=== PATIENT | male | born 1960 | race Caucasian/White ===

== ENCOUNTER 2024-06-12 16:02 | Inpatient (IN) | payer MEDICARE ==
[2024-06-12 23:29] VITALS: BMI 29.0
[2024-06-13] MEDS: cefTRIAXone\\ROCEPHIN 1 GM in Sodium Chloride 0.9% 100 ML IVPB SCH (02:09)
[2024-06-13 06:41] LABS: ALT (SGPT) 26 U/L (8-55); AST (SGOT) 16 U/L (5-34); Albumin 2.6 g/dL (3.4-4.8); Alkaline Phosphatase 85 U/L (40-110); Anion Gap 13 mmol/L (10-20); BUN (Urea Nitrogen) 26 mg/dL (8.4-25.7); Bilirubin, Total Less than 0.2 mg/dL (0.2-1.2); Calc. Creatinine Clearance 55 mL/min (70-130); Calcium 8.2 mg/dL (7.8-10.44); Carbon Dioxide 24 mmol/L (23-31); Chloride 108 mmol/L (98-107); Estimated GFR 41; Globulin 3.8 g/dL (2.4-3.5); Glucose 149 mg/dL (80-115); Potassium 3.8 mmol/L (3.5-5.1); Protein, Total 6.4 g/dL (5.8-8.1); Sodium 141 mmol/L (136-145)
[2024-06-13] MEDS ORDERED: Loperamide HCl 2 MG CAP PO PRN (11:01)
[2024-06-13] MEDS ORDERED: Ondansetron ODT 4 MG TAB SL PRN (11:01)
[2024-06-13] MEDS ORDERED: Bisacodyl 5 MG TAB PO PRN (11:01)
[2024-06-13] MEDS ORDERED: Glucagon 1 MG/ML KIT IM PRN (11:05)
[2024-06-13] MEDS ORDERED: Dextrose 5% in Water 1,000 ML IV PRN (11:05)
[2024-06-13] MEDS ORDERED: Dextrose 50% Abboject 50 ML SYRINGE SLOW IVP PRN (11:05)
[2024-06-13] MEDS: Propranolol HCl 20 MG TAB PO SCH ×2 (12:42→21:24)
[2024-06-13] MEDS: Lisinopril 20 MG TAB PO SCH ×2 (12:43→21:25)
[2024-06-13] MEDS: Hydrochlorothiazide 25 MG TAB PO SCH (12:43)
[2024-06-13 14:35] VITALS: BMI 29.0
[2024-06-13] MEDS: Saccharomyces boulardii 250 MG CAP PO SCH (21:25)
[2024-06-13] MEDS: Gabapentin 300 MG CAP PO SCH (21:25)
[2024-06-13] MEDS: Atorvastatin Calcium 40 MG TAB PO SCH (21:25)
[2024-06-13] MEDS: Baclofen 10 MG TAB PO SCH (21:25)
[2024-06-13] MEDS: levETIRAcetam 500 MG TAB PO SCH (21:26)
[2024-06-14] MEDS: cefTRIAXone\\ROCEPHIN 1 GM in Sodium Chloride 0.9% 100 ML IVPB SCH (01:37)
[2024-06-14] MEDS: Hydrochlorothiazide 25 MG TAB PO SCH (08:47)
[2024-06-14] MEDS: glipiZIDE 5 MG TAB PO SCH (08:49)
[2024-06-14] MEDS: Clopidogrel Bisulfate 75 MG TAB PO SCH (08:51)
[2024-06-14] MEDS: Pantoprazole DR 40 MG TAB PO SCH (08:51)
[2024-06-14] MEDS: Amlodipine 5 MG TAB PO SCH (08:51)
[2024-06-14] MEDS: Oxybutynin 5 MG TAB PO SCH (08:52)
[2024-06-14] MEDS: Aspirin 81 mg Enteric Coated Tablet PO SCH (08:52)
[2024-06-15] MEDS: Acetaminophen 325 MG TAB PO PRN (14:09)
[2024-06-16] MEDS: Oxybutynin 5 MG TAB PO SCH (21:19)
[2024-06-18] MEDS: cefTRIAXone (ROCEPHIN) 1 GM VIAL IVPB SCH (08:39)
[2024-06-18] MEDS ORDERED: Dextrose 50% Abboject 50 ML SYRINGE SLOW IVP PRN (18:45)
[2024-06-18] MEDS ORDERED: Glucagon 1 MG/ML KIT IM PRN (18:45)
[2024-06-18] MEDS ORDERED: HumaLOG 300 UNITS/3 ML VIAL SC PRN ×2 (18:45)
[2024-06-18] MEDS ORDERED: Dextrose 5% in Water 1,000 ML IV PRN (18:45)
[2024-06-19] MEDS: Insulin Lispro 100 UNIT/ML 10 ML VIAL SC PRN ×2 (12:58→21:08)
[2024-06-20] MEDS: Senokot S 8.6-50 MG TAB PO PRN (08:45)
[2024-06-21] MEDS ORDERED: Glucagon 1 MG/ML KIT IM PRN (14:43)
[2024-06-21] MEDS ORDERED: HumaLOG 300 UNITS/3 ML VIAL SC PRN ×2 (14:43)
[2024-06-21] MEDS ORDERED: Dextrose 50% Abboject 50 ML SYRINGE SLOW IVP PRN (14:43)
[2024-06-21] MEDS ORDERED: Dextrose 5% in Water 1,000 ML IV PRN (14:43)
[2024-06-21] MEDS: Insulin Lispro 100 UNIT/ML 10 ML VIAL SC PRN ×2 (17:38→21:51)
[2024-06-21 18:04] LABS: #Basophils 0.1 thou/uL (0.0-0.2); #Eosinophils 0.2 thou/uL (0.0-0.7); #Lymphocytes 1.5 thou/uL (1.20-3.40); #Monocytes 0.5 thou/uL (0.11-0.59); #Neutrophils 5.6 thou/uL (1.40-6.50); %Basophils 1.1 % (0.0-1.0); %Eosinophils 2.7 % (0.0-10.0); %Lymphocytes 19.1 % (21.0-51.0); %Monocytes 6.5 % (0.0-10.0); %Neutrophils 70.7 % (42.0-75.0); Hematocrit 32.9 % (42.0-52.0); Hemoglobin 10.6 g/dL (14.0-18.0); Mean Corpuscular HGB CONC 32.2 g/dL (32.0-36.0); Mean Corpuscular Hemoglobin 26.5 pg (27.0-31.0); Mean Corpuscular Volume 82.1 fl (78.0-98.0); Mean Platelet Volume 6.3 fL (7.4-10.4); Platelet Count 228 10x3/uL (130-400); RBC Distribution Width 12.4 % (11.5-14.5); Red Blood Cell (RBC) Count 4.01 mill/uL (4.70-6.10); White Blood Cell (WBC) Count 7.9 10x3/uL (4.8-10.8)
[2024-06-21 18:24] LABS: ALT (SGPT) 30 U/L (8-55); AST (SGOT) 11 U/L (5-34); Albumin 3.1 g/dL (3.4-4.8); Alkaline Phosphatase 95 U/L (40-110); Anion Gap 14 mmol/L (10-20); BUN (Urea Nitrogen) 38 mg/dL (8.4-25.7); Bilirubin, Total 0.2 mg/dL (0.2-1.2); Calc. Creatinine Clearance 39 mL/min (70-130); Calcium 8.9 mg/dL (7.8-10.44); Carbon Dioxide 25 mmol/L (23-31); Chloride 104 mmol/L (98-107); Estimated GFR 28; Globulin 3.6 g/dL (2.4-3.5); Glucose 353 mg/dL (80-115); Potassium 4.8 mmol/L (3.5-5.1); Protein, Total 6.7 g/dL (5.8-8.1); Sodium 138 mmol/L (136-145)
[2024-06-21 19:08] LABS: Bilirubin Negative (Negative); Blood, Urine Moderate (Negative); Clarity Clear (Clear); Glucose, Urine (Dipstick) 500 mg/dL (Negative); Ketone, Urine Negative (Negative); Leukocyte Small (Negative); Nitrite Negative (Negative); Protein, Urine (Dipstick) 100 mg/dL (Neg-Trace); Specific Gravity, Urine 1.015 (1.005-1.030); Urobilinogen 0.2 mg/dL (Less than 2); pH, Urine 6.5 (5.0-9.0)
[2024-06-21 20:21] LABS: Bacteria/HPF Rare-Few HPF (None Seen); CAUTI Indications for Culture Alt mental st,lethar; Squamous Epithelial 0-3 HPF (0-3)
[2024-06-21 21:08] LABS: Urine Culture Reflex Yes Yes
[2024-06-22] MEDS: Lantus 1000 UNITS/10 ML VIAL SC SCH ×2 (10:35→21:45)
[2024-06-23] MEDS: Lantus 1000 UNITS/10 ML VIAL SC SCH (08:38)
[2024-06-26] MEDS: Lantus 1000 UNITS/10 ML VIAL SC SCH (21:00)
[2024-06-27] MEDS: Lantus 1000 UNITS/10 ML VIAL SC SCH (08:35)
[2024-07-01] MEDS ORDERED: Melatonin 3 MG TAB PO PRN (06:12)
[2024-07-04 17:39] VITALS: TEMP 98.4
[2024-07-05 05:59] VITALS: BP 143/78
== END 2024-07-05 12:05 | disposition home or self-care (01) | DRG 948 ==
LOC: BURMED 22:05
PROVIDERS: ADMIT Family Medicine; ATTEND Family Medicine
DX: R53.81 Other malaise (principal); N12 Tubulo-interstitial nephritis, not specified as acute or chronic; N17.9 Acute kidney failure, unspecified; I12.9 Hypertensive chronic kidney disease with stage 1 through stage 4 chronic kidney disease, or unspecified chronic kidney disease; N18.9 Chronic kidney disease, unspecified; E11.22 Type 2 diabetes mellitus with diabetic chronic kidney disease; G40.909 Epilepsy, unspecified, not intractable, without status epilepticus; E78.5 Hyperlipidemia, unspecified; Z79.899 Other long term (current) drug therapy; Z79.82 Long term (current) use of aspirin; E11.65 Type 2 diabetes mellitus with hyperglycemia; N31.9 Neuromuscular dysfunction of bladder, unspecified; Z79.4 Long term (current) use of insulin; Z86.73 Personal history of transient ischemic attack (TIA), and cerebral infarction without residual deficits
CPT/HCPCS: 80053; 81001; 85025; 87086; 97602; J0696; J1815

== ENCOUNTER 2025-04-07 15:17 | Inpatient (IN) | payer MEDICARE ==
[2025-04-07 16:16] VITALS: BMI 29.0
[2025-04-07] MEDS ORDERED: Calcium Carbonate 500 MG ChewTAB PO PRN (19:35)
[2025-04-07] MEDS ORDERED: Bisacodyl 10 MG SUPP PR PRN (19:39)
[2025-04-07] MEDS ORDERED: Dextrose 50% Abboject 50 ML SYRINGE SLOW IVP PRN (19:50)
[2025-04-07] MEDS ORDERED: Glucagon 1 MG/ML KIT IM PRN (19:50)
[2025-04-07] MEDS: levETIRAcetam 500 MG TAB PO SCH (21:06)
[2025-04-07] MEDS: Gabapentin 300 MG CAP PO SCH (21:07)
[2025-04-07] MEDS: Ergocalciferol 1.25 MG(50,000 UNITS) CAP PO SCH (21:08)
[2025-04-07] MEDS: Melatonin 3 MG TAB PO SCH (21:08)
[2025-04-07] MEDS: Baclofen 10 MG TAB PO SCH (21:08)
[2025-04-08 06:03] LABS: #Basophils 0.1 thou/uL (0.0-0.2); #Eosinophils 0.3 thou/uL (0.0-0.7); #Lymphocytes 1.3 thou/uL (1.20-3.40); #Monocytes 0.4 thou/uL (0.11-0.59); #Neutrophils 5.2 thou/uL (1.40-6.50); %Basophils 1.5 % (0.0-1.0); %Eosinophils 3.7 % (0.0-10.0); %Lymphocytes 18.2 % (21.0-51.0); %Monocytes 5.3 % (0.0-10.0); %Neutrophils 71.4 % (42.0-75.0); Hematocrit 26.6 % (42.0-52.0); Hemoglobin 9.1 g/dL (14.0-18.0); Mean Corpuscular Hemoglobin 26.5 pg (27.0-31.0); Mean Corpuscular Volume 77.4 fl (78.0-98.0); Platelet Count 163 10x3/uL (130-400); Red Blood Cell (RBC) Count 3.44 mill/uL (4.70-6.10); White Blood Cell (WBC) Count 7.3 10x3/uL (4.8-10.8)
[2025-04-08 06:16] LABS: ALT (SGPT) 24 U/L (Less than 45); AST (SGOT) 15 U/L (11-34); Albumin 2.7 g/dL (3.1-4.5); Alkaline Phosphatase 68 U/L (40-110); Anion Gap 16 mmol/L (10-20); BUN (Urea Nitrogen) 60 mg/dL (8.4-25.7); Bilirubin, Total 0.2 mg/dL (0.3-1.2); Calc. Creatinine Clearance 43 mL/min (70-130); Calcium 8.1 mg/dL (7.8-10.44); Carbon Dioxide 19 mmol/L (23-31); Chloride 106 mmol/L (98-107); Globulin 3.6 g/dL (2.4-3.5); Glucose 263 mg/dL (80-115); Potassium 4.8 mmol/L (3.5-5.1); Sodium 136 mmol/L (136-145)
[2025-04-08] MEDS: Aspirin 81 mg Enteric Coated Tablet PO SCH (07:59)
[2025-04-08] MEDS: Pantoprazole 40 MG DR.TAB PO SCH (08:00)
[2025-04-08] MEDS: Lisinopril 20 MG TAB PO SCH (08:00)
[2025-04-08] MEDS: PROPRANOLOL HCL 120 MG PO SCH (08:51)
[2025-04-08] MEDS: Acetaminophen 325 MG TAB PO PRN (20:18)
[2025-04-09] MEDS: Senokot S 8.6-50 MG TAB PO PRN (07:52)
[2025-04-09 08:33] VITALS: BMI 29.0
[2025-04-14] MEDS: Glimepiride 2 MG TAB PO SCH (08:58)
[2025-04-15 20:22] LABS: #Basophils 0.1 thou/uL (0.0-0.2); #Eosinophils 0.1 thou/uL (0.0-0.7); #Lymphocytes 1.4 thou/uL (1.20-3.40); #Monocytes 0.3 thou/uL (0.11-0.59); #Neutrophils 4.3 thou/uL (1.40-6.50); %Basophils 1.0 % (0.0-1.0); %Eosinophils 2.2 % (0.0-10.0); %Lymphocytes 22.6 % (21.0-51.0); %Monocytes 5.0 % (0.0-10.0); %Neutrophils 69.3 % (42.0-75.0); Hematocrit 27.7 % (42.0-52.0); Hemoglobin 9.6 g/dL (14.0-18.0); Mean Corpuscular Hemoglobin 27.3 pg (27.0-31.0); Mean Corpuscular Volume 78.4 fl (78.0-98.0); Platelet Count 194 10x3/uL (130-400); Red Blood Cell (RBC) Count 3.53 mill/uL (4.70-6.10); White Blood Cell (WBC) Count 6.2 10x3/uL (4.8-10.8)
[2025-04-15 20:26] LABS: ALT (SGPT) 86 U/L (Less than 45); AST (SGOT) 46 U/L (11-34); Albumin 3.3 g/dL (3.1-4.5); Alkaline Phosphatase 142 U/L (40-110); Anion Gap 16 mmol/L (10-20); BUN (Urea Nitrogen) 62 mg/dL (8.4-25.7); Bilirubin, Total 0.2 mg/dL (0.3-1.2); Calc. Creatinine Clearance 48 mL/min (70-130); Calcium 8.2 mg/dL (7.8-10.44); Carbon Dioxide 18 mmol/L (23-31); Chloride 107 mmol/L (98-107); Globulin 3.6 g/dL (2.4-3.5); Potassium 5.5 mmol/L (3.5-5.1); Sodium 135 mmol/L (136-145)
[2025-04-15 22:59] LABS: Glucose 521 mg/dL (80-115)
[2025-04-16] MEDS: levETIRAcetam 500 MG TAB PO SCH (21:10)
[2025-04-18 07:27] LABS: ALT (SGPT) 82 U/L (Less than 45); AST (SGOT) 32 U/L (11-34); Albumin 3.1 g/dL (3.1-4.5); Alkaline Phosphatase 119 U/L (40-110); Anion Gap 15 mmol/L (10-20); BUN (Urea Nitrogen) 49 mg/dL (8.4-25.7); Bilirubin, Total 0.2 mg/dL (0.3-1.2); Calc. Creatinine Clearance 47 mL/min (70-130); Calcium 8.2 mg/dL (7.8-10.44); Carbon Dioxide 18 mmol/L (23-31); Chloride 109 mmol/L (98-107); Globulin 3.3 g/dL (2.4-3.5); Glucose 322 mg/dL (80-115); Potassium 5.4 mmol/L (3.5-5.1); Sodium 137 mmol/L (136-145)
[2025-04-19] MEDS: Lantus 1000 UNITS/10 ML VIAL SC SCH (20:33)
[2025-04-20] MEDS: Lisinopril 20 MG TAB PO SCH (09:05)
[2025-04-20] MEDS: Lantus 1000 UNITS/10 ML VIAL SC SCH (09:07)
[2025-04-21 07:22] LABS: ALT (SGPT) 66 U/L (Less than 45); AST (SGOT) 24 U/L (11-34); Albumin 3.3 g/dL (3.1-4.5); Alkaline Phosphatase 114 U/L (40-110); Anion Gap 15 mmol/L (10-20); BUN (Urea Nitrogen) 48 mg/dL (8.4-25.7); Bilirubin, Total 0.2 mg/dL (0.3-1.2); Calc. Creatinine Clearance 45 mL/min (70-130); Calcium 8.4 mg/dL (7.8-10.44); Carbon Dioxide 21 mmol/L (23-31); Chloride 107 mmol/L (98-107); Globulin 3.4 g/dL (2.4-3.5); Glucose 228 mg/dL (80-115); Potassium 5.1 mmol/L (3.5-5.1); Sodium 138 mmol/L (136-145)
[2025-04-25] MEDS: Lantus 1000 UNITS/10 ML VIAL SC SCH (20:21)
[2025-04-26 05:20] LABS: Anion Gap 15 mmol/L (10-20); BUN (Urea Nitrogen) 42 mg/dL (8.4-25.7); Calc. Creatinine Clearance 36 mL/min (70-130); Calcium 8.4 mg/dL (7.8-10.44); Carbon Dioxide 20 mmol/L (23-31); Chloride 108 mmol/L (98-107); Glucose 295 mg/dL (80-115); Potassium 5.3 mmol/L (3.5-5.1); Sodium 138 mmol/L (136-145)
[2025-04-26 05:32] LABS: #Basophils 0.1 thou/uL (0.0-0.2); #Eosinophils 0.3 thou/uL (0.0-0.7); #Lymphocytes 1.5 thou/uL (1.20-3.40); #Monocytes 0.5 thou/uL (0.11-0.59); #Neutrophils 5.0 thou/uL (1.40-6.50); %Basophils 1.1 % (0.0-1.0); %Eosinophils 3.9 % (0.0-10.0); %Lymphocytes 20.1 % (21.0-51.0); %Monocytes 6.7 % (0.0-10.0); %Neutrophils 68.1 % (42.0-75.0); Hematocrit 27.1 % (42.0-52.0); Hemoglobin 9.5 g/dL (14.0-18.0); Mean Corpuscular Hemoglobin 27.0 pg (27.0-31.0); Mean Corpuscular Volume 77.2 fl (78.0-98.0); Platelet Count 159 10x3/uL (130-400); Red Blood Cell (RBC) Count 3.51 mill/uL (4.70-6.10); White Blood Cell (WBC) Count 7.4 10x3/uL (4.8-10.8)
[2025-04-26] MEDS ORDERED: Lisinopril 20 MG TAB PO SCH (10:33)
[2025-04-26] MEDS: Lisinopril 10 MG TAB PO SCH (10:44)
[2025-04-27] MEDS: Lisinopril 10 MG TAB PO SCH (08:40)
[2025-04-27] MEDS: Fosfomycin 3 GM/Packet PO SCH (11:02)
[2025-04-28 14:58] LABS: ALT (SGPT) 33 U/L (Less than 45); AST (SGOT) 16 U/L (11-34); Albumin 3.3 g/dL (3.1-4.5); Alkaline Phosphatase 100 U/L (40-110); Anion Gap 17 mmol/L (10-20); BUN (Urea Nitrogen) 50 mg/dL (8.4-25.7); Bilirubin, Total 0.5 mg/dL (0.3-1.2); Calc. Creatinine Clearance 29 mL/min (70-130); Calcium 8.6 mg/dL (7.8-10.44); Carbon Dioxide 19 mmol/L (23-31); Chloride 107 mmol/L (98-107); Globulin 3.9 g/dL (2.4-3.5); Glucose 200 mg/dL (80-115); Potassium 4.8 mmol/L (3.5-5.1); Sodium 138 mmol/L (136-145)
[2025-04-28 15:07] LABS: #Basophils 0.1 thou/uL (0.0-0.2); #Eosinophils 0.2 thou/uL (0.0-0.7); #Lymphocytes 2.0 thou/uL (1.20-3.40); #Monocytes 0.7 thou/uL (0.11-0.59); #Neutrophils 6.5 thou/uL (1.40-6.50); %Basophils 1.0 % (0.0-1.0); %Eosinophils 1.8 % (0.0-10.0); %Lymphocytes 21.2 % (21.0-51.0); %Monocytes 7.0 % (0.0-10.0); %Neutrophils 69.0 % (42.0-75.0); Hematocrit 29.0 % (42.0-52.0); Hemoglobin 10.1 g/dL (14.0-18.0); Mean Corpuscular Hemoglobin 27.1 pg (27.0-31.0); Mean Corpuscular Volume 77.7 fl (78.0-98.0); Platelet Count 178 10x3/uL (130-400); Red Blood Cell (RBC) Count 3.73 mill/uL (4.70-6.10); White Blood Cell (WBC) Count 9.5 10x3/uL (4.8-10.8)
[2025-05-01 05:06] LABS: #Basophils 0.1 thou/uL (0.0-0.2); #Eosinophils 0.3 thou/uL (0.0-0.7); #Lymphocytes 1.3 thou/uL (1.20-3.40); #Monocytes 0.4 thou/uL (0.11-0.59); #Neutrophils 4.0 thou/uL (1.40-6.50); %Basophils 1.3 % (0.0-1.0); %Eosinophils 4.2 % (0.0-10.0); %Lymphocytes 21.3 % (21.0-51.0); %Monocytes 6.3 % (0.0-10.0); %Neutrophils 67.0 % (42.0-75.0); Hematocrit 25.6 % (42.0-52.0); Hemoglobin 9.3 g/dL (14.0-18.0); Mean Corpuscular Hemoglobin 27.6 pg (27.0-31.0); Mean Corpuscular Volume 76.3 fl (78.0-98.0); Platelet Count 147 10x3/uL (130-400); Red Blood Cell (RBC) Count 3.35 mill/uL (4.70-6.10); White Blood Cell (WBC) Count 5.9 10x3/uL (4.8-10.8)
[2025-05-01 05:27] LABS: ALT (SGPT) 20 U/L (Less than 45); AST (SGOT) 11 U/L (11-34); Albumin 3.0 g/dL (3.1-4.5); Alkaline Phosphatase 94 U/L (40-110); Anion Gap 16 mmol/L (10-20); BUN (Urea Nitrogen) 42 mg/dL (8.4-25.7); Bilirubin, Total 0.2 mg/dL (0.3-1.2); Calc. Creatinine Clearance 41 mL/min (70-130); Calcium 8.3 mg/dL (7.8-10.44); Carbon Dioxide 20 mmol/L (23-31); Chloride 111 mmol/L (98-107); Globulin 3.6 g/dL (2.4-3.5); Glucose 181 mg/dL (80-115); Potassium 4.8 mmol/L (3.5-5.1); Sodium 142 mmol/L (136-145)
[2025-05-04 11:35] LABS: Albumin 3.0 g/dL (3.1-4.5); Anion Gap 14 mmol/L (10-20); BUN (Urea Nitrogen) 38 mg/dL (8.4-25.7); BUN/Creatinine Ratio 19.69; Calc. Creatinine Clearance 51 mL/min (70-130); Calcium 8.5 mg/dL (7.8-10.44); Carbon Dioxide 23 mmol/L (23-31); Chloride 110 mmol/L (98-107); Glucose 150 mg/dL (80-115); Potassium 5.1 mmol/L (3.5-5.1); Sodium 142 mmol/L (136-145)
[2025-05-04] MEDS: Lantus 1000 UNITS/10 ML VIAL SC SCH (22:24)
[2025-05-05 05:32] LABS: #Basophils 0.1 thou/uL (0.0-0.2); #Eosinophils 0.2 thou/uL (0.0-0.7); #Lymphocytes 1.4 thou/uL (1.20-3.40); #Monocytes 0.4 thou/uL (0.11-0.59); #Neutrophils 4.0 thou/uL (1.40-6.50); %Basophils 1.3 % (0.0-1.0); %Eosinophils 3.4 % (0.0-10.0); %Lymphocytes 23.6 % (21.0-51.0); %Monocytes 6.4 % (0.0-10.0); %Neutrophils 65.4 % (42.0-75.0); Hematocrit 24.9 % (42.0-52.0); Hemoglobin 8.8 g/dL (14.0-18.0); Mean Corpuscular Hemoglobin 27.3 pg (27.0-31.0); Mean Corpuscular Volume 77.6 fl (78.0-98.0); Platelet Count 154 10x3/uL (130-400); Red Blood Cell (RBC) Count 3.22 mill/uL (4.70-6.10); White Blood Cell (WBC) Count 6.1 10x3/uL (4.8-10.8)
[2025-05-05] MEDS ORDERED: Lantus 1000 UNITS/10 ML VIAL SC SCH (21:00)
[2025-05-05] MEDS: Lantus 1000 UNITS/10 ML VIAL SC SCH (21:12)
[2025-05-06] MEDS: Lantus 1000 UNITS/10 ML VIAL SC SCH (08:56)
[2025-05-07 05:33] LABS: Albumin 2.9 g/dL (3.1-4.5); Anion Gap 15 mmol/L (10-20); BUN (Urea Nitrogen) 44 mg/dL (8.4-25.7); BUN/Creatinine Ratio 20.85; Calc. Creatinine Clearance 46 mL/min (70-130); Calcium 8.1 mg/dL (7.8-10.44); Carbon Dioxide 21 mmol/L (23-31); Chloride 109 mmol/L (98-107); Glucose 190 mg/dL (80-115); Potassium 4.6 mmol/L (3.5-5.1); Sodium 140 mmol/L (136-145)
[2025-05-11 06:30] VITALS: TEMP 98.2
[2025-05-11 08:46] VITALS: BP 158/83
== END 2025-05-11 15:38 | disposition home health service (06) | DRG 945 ==
LOC: BURMED 15:17
PROVIDERS: ADMIT Family Medicine; ATTEND Nurse Practitioner
PROC: F07Z9ZZ Gait Training/Functional Ambulation Treatment (ICD-10-PCS; principal; 2025-04-07)
DX: R53.1 Weakness (principal); N18.4 Chronic kidney disease, stage 4 (severe); N39.0 Urinary tract infection, site not specified; R41.82 Altered mental status, unspecified; E11.22 Type 2 diabetes mellitus with diabetic chronic kidney disease; G40.909 Epilepsy, unspecified, not intractable, without status epilepticus; N31.9 Neuromuscular dysfunction of bladder, unspecified; K21.9 Gastro-esophageal reflux disease without esophagitis; D63.1 Anemia in chronic kidney disease; Z97.8 Presence of other specified devices; Z79.4 Long term (current) use of insulin; Z90.49 Acquired absence of other specified parts of digestive tract; Z93.6 Other artificial openings of urinary tract status; Z79.899 Other long term (current) drug therapy; Z86.73 Personal history of transient ischemic attack (TIA), and cerebral infarction without residual deficits; Z79.82 Long term (current) use of aspirin
CPT/HCPCS: 36415; 36416; 71045; 80048; 80053; 80069; 80177; 83880; 85025; 85379; 87077; 87086; 87186; 87400; 87426; J1815; J2185; J7030

== ENCOUNTER 2025-06-07 18:35 | Inpatient (IN) | payer MEDICARE ==
[2025-06-07 18:57] VITALS: BMI 31.0
[2025-06-07] MEDS ORDERED: Calcium Carbonate 500 MG ChewTAB PO PRN (22:23)
[2025-06-07] MEDS ORDERED: Glucagon 1 MG/ML KIT IM PRN (22:27)
[2025-06-07] MEDS ORDERED: Dextrose 50% Abboject 50 ML SYRINGE SLOW IVP PRN (22:27)
[2025-06-07] MEDS ORDERED: Senokot S 8.6-50 MG TAB PO PRN (22:29)
[2025-06-07] MEDS ORDERED: Bisacodyl 10 MG SUPP PR PRN (22:29)
[2025-06-08] MEDS: MAGNESIUM CITRATE 125 MG PO SCH (09:00)
[2025-06-08] MEDS: Tumeric/Ging/Olive/Oreg/Capryl [Candicidal Capsule] PO SCH (09:00)
[2025-06-08] MEDS: Lantus 1000 UNITS/10 ML VIAL SC SCH ×2 (09:19→22:02)
[2025-06-08] MEDS: Glimepiride 2 MG TAB PO SCH (09:21)
[2025-06-08] MEDS: Pantoprazole 40 MG DR.TAB PO SCH (09:21)
[2025-06-08] MEDS: Aspirin 81 mg Enteric Coated Tablet PO SCH (09:21)
[2025-06-08] MEDS: Gabapentin 300 MG CAP PO SCH (09:22)
[2025-06-08] MEDS: Lisinopril 10 MG TAB PO SCH (09:24)
[2025-06-08] MEDS: levETIRAcetam 500 MG TAB PO SCH (09:25)
[2025-06-08] MEDS: Acetaminophen 325 MG TAB PO PRN (12:13)
[2025-06-08] MEDS: Melatonin 3 MG TAB PO SCH (22:03)
[2025-06-09 12:16] VITALS: BMI 31.0
[2025-06-10 05:03] LABS: Anion Gap 16 mmol/L (10-20); BUN (Urea Nitrogen) 48 mg/dL (8.4-25.7); Calc. Creatinine Clearance 42 mL/min (70-130); Calcium 8.3 mg/dL (7.8-10.44); Carbon Dioxide 20 mmol/L (23-31); Chloride 108 mmol/L (98-107); Glucose 203 mg/dL (80-115); Potassium 5.2 mmol/L (3.5-5.1); Sodium 139 mmol/L (136-145)
[2025-06-10 05:04] LABS: Hematocrit 26.5 % (42.0-52.0); Hemoglobin 9.5 g/dL (14.0-18.0); MDiff Complete? YES; Mean Corpuscular Hemoglobin 26.7 pg (27.0-31.0); Mean Corpuscular Volume 74.5 fl (78.0-98.0); Platelet Adequacy Comment Appears Adequate; Platelet Count 167 10x3/uL (130-400); Red Blood Cell (RBC) Count 3.56 mill/uL (4.70-6.10); White Blood Cell (WBC) Count 7.5 10x3/uL (4.8-10.8)
[2025-06-10] MEDS: FLU (Fluarix Triv) 25-26 (6MOS UP)/PF 45 MCG/0.5 ML Syringe IM ONE (08:54)
[2025-06-10] MEDS: PNEUMOC 20-VAL CONJ-DIP CRM/PF 0.5 ML SYRINGE IM ONE (08:55)
[2025-06-11 23:13] LABS: Anion Gap 16 mmol/L (10-20); BUN (Urea Nitrogen) 46 mg/dL (8.4-25.7); Calc. Creatinine Clearance 40 mL/min (70-130); Calcium 8.0 mg/dL (7.8-10.44); Carbon Dioxide 21 mmol/L (23-31); Chloride 106 mmol/L (98-107); Glucose 277 mg/dL (80-115); Potassium 5.1 mmol/L (3.5-5.1); Sodium 138 mmol/L (136-145)
[2025-06-13] MEDS: Baclofen 10 MG TAB PO PRN (09:48)
[2025-06-16 14:14] VITALS: BP 156/74; TEMP 98.3
[2025-07-07] MEDS ORDERED: Ergocalciferol 1.25 MG(50,000 UNITS) CAP PO SCH (22:30)
== END 2025-06-16 14:10 | disposition home health service (06) | DRG 945 ==
LOC: BURMED 18:35
PROVIDERS: ADMIT Family Medicine; ATTEND Family Medicine
PROC: F07Z9ZZ Gait Training/Functional Ambulation Treatment (ICD-10-PCS; principal; 2025-06-07)
PROC: 3E03329 Introduction of Other Anti-infective into Peripheral Vein, Percutaneous Approach (ICD-10-PCS; 2025-06-07)
DX: R53.1 Weakness (principal); N39.0 Urinary tract infection, site not specified; E11.22 Type 2 diabetes mellitus with diabetic chronic kidney disease; G40.909 Epilepsy, unspecified, not intractable, without status epilepticus; N28.1 Cyst of kidney, acquired; I12.9 Hypertensive chronic kidney disease with stage 1 through stage 4 chronic kidney disease, or unspecified chronic kidney disease; B96.5 Pseudomonas (aeruginosa) (mallei) (pseudomallei) as the cause of diseases classified elsewhere; N31.9 Neuromuscular dysfunction of bladder, unspecified; M62.50 Muscle wasting and atrophy, not elsewhere classified, unspecified site; N18.30 Chronic kidney disease, stage 3 unspecified; N28.89 Other specified disorders of kidney and ureter; T83.511D Infection and inflammatory reaction due to indwelling urethral catheter, subsequent encounter; Z86.73 Personal history of transient ischemic attack (TIA), and cerebral infarction without residual deficits; Z90.49 Acquired absence of other specified parts of digestive tract; Z74.01 Bed confinement status; Z79.899 Other long term (current) drug therapy; Z79.4 Long term (current) use of insulin
CPT/HCPCS: 36415; 36416; 80048; 85025; J0692; J1815

== ENCOUNTER 2025-07-02 13:44 | Inpatient (IN) | payer MEDICARE ==
[2025-07-02 15:09] VITALS: BMI 29.5
[2025-07-02] MEDS ORDERED: Senokot S 8.6-50 MG TAB PO PRN (17:23)
[2025-07-02] MEDS ORDERED: Calcium Carbonate 500 MG ChewTAB PO PRN (17:23)
[2025-07-02] MEDS ORDERED: Bisacodyl 10 MG SUPP PR PRN (17:23)
[2025-07-02] MEDS ORDERED: Dextrose 50% Abboject 50 ML SYRINGE SLOW IVP PRN (17:25)
[2025-07-02] MEDS ORDERED: Glucagon 1 MG/ML KIT IM PRN (17:25)
[2025-07-02] MEDS: Gabapentin 300 MG CAP PO SCH (20:33)
[2025-07-02] MEDS: levETIRAcetam 250 MG TAB PO SCH (20:34)
[2025-07-02] MEDS: Melatonin 3 MG TAB PO SCH (20:34)
[2025-07-02] MEDS: Lantus 1000 UNITS/10 ML VIAL SC SCH (21:11)
[2025-07-03] MEDS: Pantoprazole 40 MG DR.TAB PO SCH (09:05)
[2025-07-03] MEDS: Aspirin 81 mg Enteric Coated Tablet PO SCH (09:05)
[2025-07-03] MEDS: glipiZIDE 5 MG TAB PO SCH (09:06)
[2025-07-03] MEDS: Ergocalciferol 1.25 MG(50,000 UNITS) CAP PO SCH (09:16)
[2025-07-03] MEDS: Lantus 1000 UNITS/10 ML VIAL SC SCH (09:16)
[2025-07-03] MEDS: FLU (Fluarix Triv) 25-26 (6MOS UP)/PF 45 MCG/0.5 ML Syringe IM ONE (11:08)
[2025-07-03] MEDS: MAGNESIUM CITRATE PO SCH (11:09)
[2025-07-03] MEDS: PNEUMOC 20-VAL CONJ-DIP CRM/PF 0.5 ML SYRINGE IM ONE (11:09)
[2025-07-03] MEDS: Tumeric/Ging/Olive/Oreg/Capryl [Candicidal Capsule] PO SCH (11:09)
[2025-07-04] MEDS: Acetaminophen 325 MG TAB PO PRN (00:09)
[2025-07-04] MEDS: Lisinopril 10 MG TAB PO SCH (09:31)
[2025-07-05 09:44] VITALS: BMI 29.5
[2025-07-07 04:59] LABS: #Basophils 0.1 thou/uL (0.0-0.2); #Eosinophils 0.2 thou/uL (0.0-0.7); #Lymphocytes 1.9 thou/uL (1.20-3.40); #Monocytes 0.5 thou/uL (0.11-0.59); #Neutrophils 4.9 thou/uL (1.40-6.50); %Basophils 1.4 % (0.0-1.0); %Eosinophils 3.0 % (0.0-10.0); %Lymphocytes 24.6 % (21.0-51.0); %Monocytes 5.9 % (0.0-10.0); %Neutrophils 65.1 % (42.0-75.0); Hematocrit 30.0 % (42.0-52.0); Hemoglobin 9.8 g/dL (14.0-18.0); Mean Corpuscular Hemoglobin 27.0 pg (27.0-31.0); Mean Corpuscular Volume 82.7 fl (78.0-98.0); Platelet Count 206 10x3/uL (130-400); Red Blood Cell (RBC) Count 3.63 mill/uL (4.70-6.10); White Blood Cell (WBC) Count 7.6 10x3/uL (4.8-10.8)
[2025-07-07 05:13] LABS: Anion Gap 14 mmol/L (10-20); BUN (Urea Nitrogen) 42 mg/dL (8.4-25.7); Calc. Creatinine Clearance 52 mL/min (70-130); Calcium 7.9 mg/dL (7.8-10.44); Carbon Dioxide 22 mmol/L (23-31); Chloride 107 mmol/L (98-107); Glucose 130 mg/dL (80-115); Potassium 4.4 mmol/L (3.5-5.1); Sodium 139 mmol/L (136-145)
[2025-07-11] MEDS: Baclofen 10 MG TAB PO PRN (02:36)
[2025-07-11 06:40] VITALS: TEMP 98.1
[2025-07-11] MEDS: Cefdinir 300 MG CAP PO SCH (09:11)
[2025-07-11 09:14] VITALS: BP 160/70
== END 2025-07-11 14:12 | disposition home or self-care (01) | DRG 948 ==
LOC: BURMED 14:25
PROVIDERS: ADMIT Family Medicine; ATTEND Family Medicine
DX: R53.1 Weakness (principal); Z16.24 Resistance to multiple antibiotics; N17.9 Acute kidney failure, unspecified; N39.0 Urinary tract infection, site not specified; N31.9 Neuromuscular dysfunction of bladder, unspecified; G40.909 Epilepsy, unspecified, not intractable, without status epilepticus; E78.5 Hyperlipidemia, unspecified; R33.8 Other retention of urine; E11.22 Type 2 diabetes mellitus with diabetic chronic kidney disease; I12.9 Hypertensive chronic kidney disease with stage 1 through stage 4 chronic kidney disease, or unspecified chronic kidney disease; N18.30 Chronic kidney disease, stage 3 unspecified; G47.33 Obstructive sleep apnea (adult) (pediatric); K21.9 Gastro-esophageal reflux disease without esophagitis; Z87.440 Personal history of urinary (tract) infections; Z86.73 Personal history of transient ischemic attack (TIA), and cerebral infarction without residual deficits; Z98.890 Other specified postprocedural states; Z93.6 Other artificial openings of urinary tract status; Z90.49 Acquired absence of other specified parts of digestive tract; Z79.899 Other long term (current) drug therapy; Z79.02 Long term (current) use of antithrombotics/antiplatelets; Z79.82 Long term (current) use of aspirin; Z79.84 Long term (current) use of oral hypoglycemic drugs; Z79.4 Long term (current) use of insulin; Z79.2 Long term (current) use of antibiotics; Z74.01 Bed confinement status
CPT/HCPCS: 36415; 36416; 80048; 85025; J1815; J2185